=== PATIENT | female | born 1985 | race Caucasian/White ===

== ENCOUNTER 2022-01-25 15:18 | Outpatient (CLI) | payer OTHER, SELFPAY ==
[2022-01-25 16:02] LABS: Absolute Lymphocyte Count 2.95 X10^3/uL (0.83-4.51); Basophil# 0.03 X10^3/uL; Basophil% 0.2 % (0-1); Eosinophil# 0.07 X10^3/uL; Eosinophils% 0.4 % (0-5); Hematocrit 37.1 % (37-47); Hemoglobin 12.2 g/dL (12.0-15.0); Lymphocyte # 2.95 X10^3/ul (0.83-4.51); Lymphocyte % 18.5 % (19-41); Mean Corp Hgb Conc 32.9 g/dL (32-36); Mean Corpuscular Hgb 27.2 pg (27.0-32.0); Mean Corpuscular Volume 82.8 fL (81-99); Mean Platelet Vol. 10.6 fl (6.2-12.0); NRBC Flagged by Analyzer 0 % (0-5); Neutrophil # 11.98 X10^3/uL (2.7-7.7); Neutrophil % 75.2 % (47-70); Platelet Count 350 K/mm3 (150-450); RBC Distribution Width CV 14.1 % (11.6-14.6); Red Blood Count 4.48 M/mm3 (4.2-5.4); White Blood Count 15.9 K/mm3 (4.4-11.0)
[2022-01-25 16:40] LABS: Hemoglobin A1c 5.4 % (3.8-5.6)
[2022-01-26 08:17] LABS: Rubella IgG Reactive (Nonreactive)
[2022-02-01 13:04] LABS: HPV Reflexed? NOT INDICATED
== END 2022-01-25 23:59 | disposition home or self-care (01) ==
LOC: PAVLAB 15:20
PROVIDERS: PCP Family Medicine; Referring Provider Obstetrics & Gynecology; Visit Provider Obstetrics & Gynecology
DX: O99.210 Obesity complicating pregnancy, unspecified trimester (principal); Z3A.00 Weeks of gestation of pregnancy not specified; Z12.4 Encounter for screening for malignant neoplasm of cervix
CPT/HCPCS: 36415; 83036; 85025; 86762; 86850; 86900; 86901; 88175; G0145

== ENCOUNTER → 2022-02-20 | Outpatient (CLI) | payer SELFPAY, OTHER ==
--- NOTE | 2022-02-20 11:29 | US_ITS ---
STUDY: SECOND AND THIRD TRIMESTER OBSTETRICAL ULTRASOUND REASON FOR EXAM: Female, 36 years old . Anatomy. LMP: 09/29/2021. TECHNIQUE: Transabdominal TECHNICAL QUALITY: Limited. Examination limited due to obesity. PRIOR ULTRASOUND: None. FINDINGS: There is a single intrauterine fetus. The fetus is in a breech presentation. There is demonstrated cardiac activity with a heart rate of 145 bpm. There is a normal amniotic fluid volume. The largest amniotic fluid pocket measures 7.4 cm x 3.9 cm. The amniotic fluid index (TIFF) is within normal limits. The placenta is fundal in location. There are Grade 0 placental changes. The cervix measures in length. The bilateral adnexal regions are normal. BIOMETRY: BPD: 4.73 cm: 20 weeks, 2 days HC: 17.5 cm: 20 weeks, 0 days AC: 16.2 cm: 21 weeks, 1 days FL: 3.08 cm: 19 weeks, 3 days CI: 81% FL/BPD: 65% FL/HC: FL/AC: 19% HC/AC: 1.08 age by current US: 19 weeks, 6 days. RAMY by current US: 07/11/2022. Estimated weight: 359 grams, +/- 54 grams, 41 %. Age by LMP: 20 weeks, 4 days. RAMY by LMP: 07/06/2022. ANATOMY: Gender: Indeterminant Cranium: The lateral ventricles are non-visualized. Normal choroid plexus. The cerebellum is non-visualized.. The cisterna magna is non-visualized. Normal face, nose and lips. Chest: Normal 4-chamber heart. Abdomen/Pelvis: Normal diaphragm. Normal stomach. Normal abdominal wall. Normal cord insertion. Normal 3 vessel cord. Normal kidneys. Normal bladder. Spine: The cervical spine is non-visualized. The thoracic spine is non-visualized. The lumbar spine is non-visualized. Normal sacrum. Extremities: Normal bilateral upper extremities. Normal bilateral lower extremities. IMPRESSION: Single live intrauterine gestation with a mean gestational age of 19 weeks and 6 days. Limited visualization of the spine and cranium as described. Follow-up sonogram recommended. Electronically Signed: Navdeep Handley MD at 10:00 EDT , STUDY: FIRST TRIMESTER OBSTETRICAL ULTRASOUND REASON FOR EXAM: Female, 36 years old . Cervical measurement. LMP: 09/29/2021 TECHNIQUE: Transvaginal TECHNICAL QUALITY: Adequate. PRIOR ULTRASOUND: None. FINDINGS: The cervical length measures 4.1 cm. US/OB Anatomy Scan IMPRESSION: Cervical length measures 4.1 cm. Electronically Signed: Navdeep Handley MD at 10:01 EDT ,
[2022-02-20 14:35] LABS: Absolute Lymphocyte Count 2.39 X10^3/uL (0.83-4.51); Absolute Neutrophil Count 10.4 X10^3/uL (2.0-7.7); Basophil# 0.03 X10^3/uL; Basophil% 0.2 % (0-1); Eosinophil# 0.08 X10^3/uL; Eosinophils% 0.6 % (0-5); Hematocrit 34.9 % (37-47); Hemoglobin 11.7 g/dL (12.0-15.0); Lymphocyte # 2.39 X10^3/ul (0.83-4.51); Lymphocyte % 17.4 % (19-41); Mean Corp Hgb Conc 33.5 g/dL (32-36); Mean Corpuscular Hgb 27.7 pg (27.0-32.0); Mean Corpuscular Volume 82.7 fL (81-99); Mean Platelet Vol. 10.6 fl (6.2-12.0); Monocyte# 0.77 X10^3/uL; Monocyte% 5.6 % (0-10); NRBC Flagged by Analyzer 0 % (0-5); Neutrophil # 10.37 X10^3/uL (2.7-7.7); Neutrophil % 75.7 % (47-70); Platelet Count 333 K/mm3 (150-450); RBC Distribution Width CV 14.4 % (11.6-14.6); RBC Distribution Width SD 42.8 fl (35.1-43.9); Red Blood Count 4.22 M/mm3 (4.2-5.4); White Blood Count 13.7 K/mm3 (4.4-11.0)
[2022-02-20 14:51] LABS: ALB/GLOB Ratio 0.8 RATIO (0.9-2.4); AST(SGOT) 4 U/L (15-37); Alanine Aminotransfer ALT/SGPT 20 U/L (13-56); Albumin, Serum 3.1 g/dL (3.2-5.0); Alkaline Phosphatase 63 U/L (45-117); Anion Gap 8 (5-15); BUN 5 mg/dL (7-18); BUN/Creat Ratio 7.9 RATIO (10-20); Calcium,Total 9.6 mg/dL (8.5-10.1); Chloride 107 mmol/L (98-107); Creatinine, Serum 0.63 mg/dL (0.55-1.02); EST Glomerular Filtration Rate 115 mL/min (>60); Est Glom Filt Rate - Afr Amer 139 mL/min (>60); Globulin 3.9 g/dL (2.2-4.2); Glucose 119 mg/dL (74-106); Potassium 3.6 mmol/L (3.5-5.1); Sodium Level 138 mmol/L (136-145)
[2022-02-20 14:59] LABS: Protein, Urine (Random) 9.8 mg/dL (<11.9); Protein:Creat Ratio 75 mg/g CRE (0-200)
== END | disposition home or self-care (01) ==
PROVIDERS: Nurse Practitioner Women's Health; PCP Family Medicine; Referring Provider Obstetrics & Gynecology; Visit Provider Obstetrics & Gynecology
DX: Z34.90 Encounter for supervision of normal pregnancy, unspecified, unspecified trimester (principal); R03.0 Elevated blood-pressure reading, without diagnosis of hypertension
CPT/HCPCS: 36415; 76805; 76817; 80053; 82570; 84156; 85025; 87086; 87088

== ENCOUNTER → 2022-03-20 | Outpatient (CLI) | payer OTHER, SELFPAY | END | disposition home or self-care (01) | LOC: PAVLAB 09:07 | PROVIDERS: PCP Family Medicine; Referring Provider Obstetrics & Gynecology; Visit Provider Obstetrics & Gynecology | DX: Z36.9 Encounter for antenatal screening, unspecified (principal) ==

== ENCOUNTER → 2022-04-17 | Outpatient (CLI) | payer SELFPAY, OTHER ==
--- NOTE | 2022-04-17 13:22 | US_ITS ---
STUDY: OBSTETRICAL ULTRASOUND - BIOPHYSICAL PROFILE REASON FOR EXAM: Female, 36 years old wellbeing LMP: 09/29/2021. PRIOR ULTRASOUND: Comparison is made with prior study dated 02/20/2022. TECHNIQUE: Transabdominal TECHNICAL QUALITY: Adequate. FINDINGS: There is a single intrauterine fetus. The fetus is in a cephalic presentation. There is demonstrated cardiac activity with a heart rate of 149 bpm. There is a normal amniotic fluid volume. The largest amniotic fluid pocket measures 6.6 cm x 7.1 cm. The amniotic fluid index (TIFF) is 12.9 cm. The placenta is fundal in location. There are Grade 2 placental changes. Age by LMP: 28 weeks, 4 days. RAMY by LMP: 07/06/2022. age by prior US: 27 weeks, 6 days. RAMY by prior US: 07/11/2022. BIOPHYSICAL PROFILE: Breathing Movements (FBM): 2 Gross Body Movements (GBM): 2 Tone (FT): 2 Amniotic Fluid Volume (AFV): 2 TOTAL SCORE: 8 / 8 US/Biophysical Prof W/O Non Stres IMPRESSION: Normal biophysical profile of 8/8. Electronically Signed: Navdeep Handley MD at 14:56 EDT ,
== END | disposition home or self-care (01) ==
PROVIDERS: PCP Family Medicine; Referring Provider Nurse Practitioner Women's Health; Visit Provider Nurse Practitioner Women's Health
DX: O16.9 Unspecified maternal hypertension, unspecified trimester (principal); Z3A.00 Weeks of gestation of pregnancy not specified
CPT/HCPCS: 76819

== ENCOUNTER → 2022-04-17 | Outpatient (CLI) | payer OTHER, SELFPAY ==
[2022-04-17 08:47] LABS: Absolute Lymphocyte Count 1.78 X10^3/uL (0.83-4.51); Absolute Neutrophil Count 10.8 X10^3/uL (2.0-7.7); Basophil# 0.02 X10^3/uL; Basophil% 0.2 % (0-1); Eosinophil# 0.09 X10^3/uL; Eosinophils% 0.7 % (0-5); Hematocrit 33.9 % (37-47); Hemoglobin 10.8 g/dL (12.0-15.0); Lymphocyte # 1.78 X10^3/ul (0.83-4.51); Lymphocyte % 13.4 % (19-41); Mean Corp Hgb Conc 31.9 g/dL (32-36); Mean Corpuscular Hgb 27.3 pg (27.0-32.0); Mean Corpuscular Volume 85.8 fL (81-99); Mean Platelet Vol. 10.7 fl (6.2-12.0); Monocyte% 3.8 % (0-10); NRBC Flagged by Analyzer 0 % (0-5); Neutrophil # 10.81 X10^3/uL (2.7-7.7); Neutrophil % 81.2 % (47-70); Platelet Count 294 K/mm3 (150-450); RBC Distribution Width CV 13.8 % (11.6-14.6); RBC Distribution Width SD 42.8 fl (35.1-43.9); Red Blood Count 3.95 M/mm3 (4.2-5.4); White Blood Count 13.3 K/mm3 (4.4-11.0)
[2022-04-17 09:12] LABS: Glucose Challenge Gest 1H 50g 160 mg/dL (70-140)
[2022-04-17 09:34] LABS: ALB/GLOB Ratio 0.7 RATIO (0.9-2.4); AST(SGOT) 9 U/L (15-37); Alanine Aminotransfer ALT/SGPT 17 U/L (13-56); Albumin, Serum 2.7 g/dL (3.2-5.0); Alkaline Phosphatase 75 U/L (45-117); Anion Gap 8 (5-15); BUN 4 mg/dL (7-18); Calcium,Total 9.3 mg/dL (8.5-10.1); Chloride 106 mmol/L (98-107); Creatinine, Serum 0.67 mg/dL (0.55-1.02); EST Glomerular Filtration Rate 107 mL/min (>60); Est Glom Filt Rate - Afr Amer 130 mL/min (>60); Globulin 3.9 g/dL (2.2-4.2); Glucose 153 mg/dL (74-106); Potassium 3.9 mmol/L (3.5-5.1); Protein, Total 6.6 g/dL (6.4-8.2); Sodium Level 136 mmol/L (136-145)
[2022-04-17 10:37] LABS: Creatinine, Urine (random) < 13.00 mg/dL (NO RANGE EST.); Protein, Urine (Random) < 6.0 mg/dL (<11.9)
== END | disposition home or self-care (01) ==
LOC: PAVLAB 08:32
PROVIDERS: Nurse Practitioner Women's Health; PCP Family Medicine; Referring Provider Obstetrics & Gynecology; Visit Provider Obstetrics & Gynecology
DX: Z34.02 Encounter for supervision of normal first pregnancy, second trimester (principal); I10 Essential (primary) hypertension
CPT/HCPCS: 36415; 80053; 82570; 82950; 84156; 85025